=== PATIENT | male | born 1955 | race Caucasian/White ===

== ENCOUNTER → 2018-09-07 | Outpatient (CLI) | payer MEDICARE, BC | END | disposition home or self-care (01) | LOC: LABWHC1 12:42 | PROVIDERS: ATTEND Urology | DX: R97.20 Elevated prostate specific antigen [PSA] (principal) | CPT/HCPCS: 36415; 84153 ==

== ENCOUNTER → 2018-09-14 | Outpatient (CLI) | payer MEDICARE, BC ==
--- NOTE | 2018-09-14 13:39 | XR ---
KUB HISTORY: Left-sided kidney stone Frontal KUB and 2 images correlated to prior KUB 12/30/2013, CT abdomen pelvis 03/31/2017 Multiple calcifications are present within the pelvis. Difficult to exclude a distal ureteral calculu s. Arthropathy noted in the hips. Degenerative disc changes in the visualized spine. No evident bowel obstruction or pneumoperitoneum. IMPRESSION: Indeterminate pelvic calcifications.
== END | disposition home or self-care (01) ==
LOC: RADXRMAIN 10:43
PROVIDERS: ATTEND Urology
DX: N23 Unspecified renal colic (principal)
CPT/HCPCS: 74018

== ENCOUNTER → 2018-10-11 | Outpatient (CLI) | payer MEDICARE, BC ==
--- NOTE | 2018-10-11 14:43 | XR ---
KUB HISTORY: N 20.1 KUB on 2 images correlated to prior KUB 09/14/2018 Small calcification is seen overlying the lower pole the left kidney measuring approximately 2 to 3 m m, additional calcification may be present in the mid to lower pole. There is no obstruction or pneum operitoneum. The calcifications seen on previous exam in the left hemipelvis at the level of the dist al ureter is no longer seen. There is an oval calcification in the left pelvis which is stable. IMPRESSION: Interval clearance of distal ureteral high density on the left. Left-sided nephrolithiasi s may be present.
== END | disposition home or self-care (01) ==
LOC: RADXRMAIN 12:16
PROVIDERS: ATTEND Urology
DX: N20.1 Calculus of ureter (principal); Z88.0 Allergy status to penicillin
CPT/HCPCS: 74018